=== PATIENT | male | born 1980 | race Caucasian/White ===

== ENCOUNTER → 2017-05-29 | Outpatient (CLI) | payer OTHER ==
--- NOTE | 2017-05-29 12:20 | Diagnostic Imaging Report ---
PROCEDURE:TESTICULAR ULTRASOUND COMPARISON:None. INDICATIONS:LT TESTICULAR PAIN TECHNIQUE: Lyon-scale and color doppler images of the testicles and scrotal contents were obtained. Duplex imaging with spectral waveform analysis was performed of the testicular arteries and veins. FINDINGS: RIGHT SCROTUM: Testicle: 4.2 x 2.3 x 3 cm. Homogenous parenchymal echotexture. Normal arterial and venous waveforms by color Doppler and spectral waveform analysis. No intratesticular mass. Epididymal head: 1.1 x 0.8 x 1.2 cm. Hydrocele: None Varicocele: None LEFT SCROTUM: Testicle: 4.3 x 2 x 2.8 cm. Homogenous parenchymal echotexture. Normal arterial and venous waveforms by color Doppler and spectral waveform analysis. No intratesticular mass. Epididymal head: 1.3 x 1.4 x 1.3 cm. 0.5 cm simple epididymal head cyst or spermatocele. Hydrocele: None Varicocele: None CONCLUSION: Unremarkable sonographic appearance of the testes. No sonographic findings to suggest testicular torsion. Findings discussed with Ms. Vasquez at Dr. Hobbs' office at 12:15 pm 05/29/17 Dictated by: Marcelo Summers M.D. on 05/29/2017 at 12:20 Electronically approved by: Marcelo Summers M.D. on 05/29/2017 at 12:20
--- NOTE | 2017-05-29 12:21 | Diagnostic Imaging Report ---
PROCEDURE:TESTICULAR DOPPLER ULTRASOUND COMPARISON:None. INDICATIONS:LT TESTICULAR PAIN TECHNIQUE: Lyon-scale and color doppler images of the testicles and scrotal contents were obtained. Duplex imaging with spectral waveform analysis was performed of the testicular arteries and veins. FINDINGS: See conclusion CONCLUSION: Refer to "US TESTICULAR" also from 05/29/2017 for full dictated report. Dictated by: Marcelo Summers M.D. on 05/29/2017 at 12:21 Electronically approved by: Marcelo Summers M.D. on 05/29/2017 at 12:21
== END ==
LOC: US 10:39
PROVIDERS: ATTEND Family Medicine
DX: N50.9 Disorder of male genital organs, unspecified (principal)
CPT/HCPCS: 76870; 93976